=== PATIENT | male | born 1935 | race Caucasian/White ===

== ENCOUNTER 2019-02-22 14:10 | Inpatient (IN) | payer OTHER, MEDICAID ==
[~2019-02-22] VITALS: Ht 162.6 cm; Wt 81.0 kg
[~2019-02-22 14:10] MED LIST: FLA500 PO; LAC PO; LEVAQUIN750 MG PO
[2019-02-22 15:11] LABS: RED CELL DISTRIBUTION WIDTH 13.9 % (11.5-14.5)
[2019-02-22 15:16] LABS: CALCIUM 9.5 mg/dL (8.5-10.1); CARBON DIOXIDE 27.5 mmol/L (21-32); CHLORIDE SERUM 96 mmol/L (98-107); CREATININE SERUM 1.5 mg/dL (0.7-1.3); GLUCOSE SERUM 230 mg/dL (74-106); POTASSIUM SERUM 4.5 mmol/L (3.5-5.1); SODIUM SERUM 134 mmol/L (136-145)
[2019-02-22 15:17] LABS: PLATELET COUNT 598 x10^3mcL (130-400)
[2019-02-22 15:20] LABS: ALBUMIN 3.6 g/dL (3.4-5.0); ALKALINE PHOSPHATASE 185 U/L (46-116); ALT/SGPT 87 U/L (16-63); AST/SGOT 30 U/L (15-37); BILIRUBIN TOTAL 0.7 mg/dL (0.20-1.00); LIPASE 103 IU/L (73-393)
[2019-02-22 15:21] LABS: TOTAL PROTEIN, SERUM 8.5 g/dL (6.4-8.2)
[2019-02-22 16:09] LABS: BAND NEUTROPHIL 3 % (0-10); BASOPHIL 0 % (0-2); MONOCYTE 3 % (0-7); SEGMENTED NEUTROPHILS 84 % (37-75); rbc morphology (normal/abnorm) ABNORMAL (NORMAL)
[2019-02-22 16:10] LABS: PLATELET MORPHOLOGY PLATELETS INCREASED
[2019-02-22] MEDS ORDERED: METFORMIN HYDR500 M1 (16:44)
[2019-02-22] MEDS ORDERED: OMEPRAZOLE40 M1 PO (16:44)
[2019-02-22] MEDS ORDERED: LOSARTAN POTAS100 M1 PO (16:45)
[2019-02-22] MEDS ORDERED: LOVASTATIN40 MG PO (16:45)
[2019-02-22 20:58] VITALS: BP 118/72
[2019-02-23 05:49] VITALS: BP 107/46
[2019-02-23 07:36] LABS: ALKALINE PHOSPHATASE 137 U/L (46-116); ALT/SGPT 59 U/L (16-63); AMYLASE 38 U/L (25-115); AST/SGOT 22 U/L (15-37); BILIRUBIN TOTAL 0.6 mg/dL (0.20-1.00); CALCIUM 8.5 mg/dL (8.5-10.1); CARBON DIOXIDE 26.3 mmol/L (21-32); CHLORIDE SERUM 100 mmol/L (98-107); CREATININE SERUM 1.5 mg/dL (0.7-1.3); GLUCOSE SERUM 183 mg/dL (74-106); LIPASE 43 IU/L (73-393); POTASSIUM SERUM 4.7 mmol/L (3.5-5.1); SODIUM SERUM 136 mmol/L (136-145); TOTAL PROTEIN, SERUM 7.4 g/dL (6.4-8.2)
[2019-02-23 07:37] LABS: ALBUMIN 2.9 g/dL (3.4-5.0)
[2019-02-23 08:31] VITALS: BP 135/64
[2019-02-23 11:45] VITALS: BP 100/50
[2019-02-23 12:48] LABS: BAND NEUTROPHIL 18 % (0-10); MONOCYTE 5 % (0-7); PLATELET MORPHOLOGY PLATELETS INCREASED; SEGMENTED NEUTROPHILS 74 % (37-75); rbc morphology (normal/abnorm) NORMAL (NORMAL)
[2019-02-23 12:50] LABS: PLATELET COUNT 516 x10^3mcL (130-400)
[2019-02-23 16:00] VITALS: BP 130/65
[2019-02-23 17:18] VITALS: BP 115/54
[2019-02-23 21:17] VITALS: BP 128/55
[2019-02-24 05:41] VITALS: BP 120/56
[2019-02-24 08:03] VITALS: BP 114/63
[2019-02-24 12:17] LABS: ALKALINE PHOSPHATASE 129 U/L (46-116); ALT/SGPT 53 U/L (16-63); AST/SGOT 29 U/L (15-37); BILIRUBIN TOTAL 0.4 mg/dL (0.20-1.00); CALCIUM 7.9 mg/dL (8.5-10.1); CARBON DIOXIDE 24.1 mmol/L (21-32); CHLORIDE SERUM 100 mmol/L (98-107); CREATININE SERUM 1.5 mg/dL (0.7-1.3); GLUCOSE SERUM 190 mg/dL (74-106); LIPASE 30 IU/L (73-393); POTASSIUM SERUM 4.2 mmol/L (3.5-5.1); SODIUM SERUM 136 mmol/L (136-145)
[2019-02-24 12:18] LABS: RED CELL DISTRIBUTION WIDTH 13.9 % (11.5-14.5)
[2019-02-24 12:20] LABS: ALBUMIN 2.4 g/dL (3.4-5.0)
[2019-02-24 12:24] LABS: PLATELET COUNT 444 x10^3mcL (130-400)
[2019-02-24 12:55] LABS: BAND NEUTROPHIL 20 % (0-10); SEGMENTED NEUTROPHILS 72 % (37-75)
[2019-02-24 12:56] LABS: MONOCYTE 3 % (0-7); PLATELET MORPHOLOGY PLATELETS INCREASED; rbc morphology (normal/abnorm) NORMAL (NORMAL)
[2019-02-24 16:00] VITALS: BP 111/59
[2019-02-24 16:02] VITALS: BP 122/66
[2019-02-24 20:14] VITALS: BP 135/69
[2019-02-25 05:48] VITALS: BP 156/68
[2019-02-25 06:36] LABS: RED CELL DISTRIBUTION WIDTH 13.9 % (11.5-14.5)
[2019-02-25 06:52] LABS: ALKALINE PHOSPHATASE 136 U/L (46-116); ALT/SGPT 69 U/L (16-63); AST/SGOT 46 U/L (15-37); BILIRUBIN TOTAL 0.48 mg/dL (0.20-1.00); CALCIUM 8.4 mg/dL (8.5-10.1); CARBON DIOXIDE 25.2 mmol/L (21-32); CHLORIDE SERUM 98 mmol/L (98-107); CREATININE SERUM 1.3 mg/dL (0.7-1.3); GLUCOSE SERUM 212 mg/dL (74-106); POTASSIUM SERUM 4.3 mmol/L (3.5-5.1); SODIUM SERUM 133 mmol/L (136-145); TOTAL PROTEIN, SERUM 7.2 g/dL (6.4-8.2)
[2019-02-25 06:53] LABS: ALBUMIN 2.3 g/dL (3.4-5.0)
[2019-02-25 06:55] LABS: PLATELET COUNT 456 x10^3mcL (130-400)
[2019-02-25 08:29] VITALS: BP 157/78
[2019-02-25 10:28] LABS: MONOCYTE 6 % (0-7); SEGMENTED NEUTROPHILS 87 % (37-75)
[2019-02-25 15:27] VITALS: BP 101/56
[2019-02-25 19:45] VITALS: BP 123/57
[2019-02-25 23:09] VITALS: BP 133/65
[2019-02-26 03:32] VITALS: BP 135/66
[2019-02-26 05:23] LABS: PLATELET COUNT 366 x10^3mcL (130-400); RED CELL DISTRIBUTION WIDTH 14.4 % (11.5-14.5)
[2019-02-26 05:40] LABS: ALKALINE PHOSPHATASE 115 U/L (46-116); ALT/SGPT 55 U/L (16-63); AST/SGOT 35 U/L (15-37); BILIRUBIN TOTAL 0.32 mg/dL (0.20-1.00); CALCIUM 7.7 mg/dL (8.5-10.1); CARBON DIOXIDE 27.2 mmol/L (21-32); CHLORIDE SERUM 100 mmol/L (98-107); CREATININE SERUM 1.4 mg/dL (0.7-1.3); GLUCOSE SERUM 204 mg/dL (74-106); POTASSIUM SERUM 3.8 mmol/L (3.5-5.1); SODIUM SERUM 135 mmol/L (136-145); TOTAL PROTEIN, SERUM 6.4 g/dL (6.4-8.2)
[2019-02-26 06:06] LABS: BAND NEUTROPHIL 6 % (0-10); BASOPHIL 0 % (0-2); MONOCYTE 3 % (0-7); SEGMENTED NEUTROPHILS 84 % (37-75)
[2019-02-26 06:07] LABS: PLATELET MORPHOLOGY PLATELETS INCREASED; rbc morphology (normal/abnorm) ABNORMAL (NORMAL)
[2019-02-26 06:08] LABS: PATH REVIEW for HEMA NO
[2019-02-26 08:00] VITALS: BP 124/60
[2019-02-26 09:08] VITALS: Ht 162.6 cm; Wt 81.0 kg
[2019-02-26 13:00] VITALS: BP 134/58
[2019-02-26 16:00] VITALS: BP 143/78
[2019-02-26 19:20] VITALS: BP 133/66
[2019-02-26 23:09] VITALS: BP 115/51
[2019-02-27 03:15] VITALS: BP 135/61
[2019-02-27 05:53] LABS: PLATELET COUNT 336 x10^3mcL (130-400); RED CELL DISTRIBUTION WIDTH 14.4 % (11.5-14.5)
[2019-02-27 06:03] LABS: BASOPHIL % 0 % (0-2)
[2019-02-27 06:20] LABS: ALKALINE PHOSPHATASE 100 U/L (46-116); ALT/SGPT 54 U/L (16-63); AST/SGOT 42 U/L (15-37); BILIRUBIN TOTAL 0.21 mg/dL (0.20-1.00); CALCIUM 7.3 mg/dL (8.5-10.1); CARBON DIOXIDE 25.3 mmol/L (21-32); CHLORIDE SERUM 101 mmol/L (98-107); CREATININE SERUM 1.4 mg/dL (0.7-1.3); GLUCOSE SERUM 266 mg/dL (74-106); MAGNESIUM 1.4 mg/dL (1.8-2.4); POTASSIUM SERUM 4.5 mmol/L (3.5-5.1); SODIUM SERUM 135 mmol/L (136-145)
[2019-02-27 06:22] LABS: ALBUMIN 1.7 g/dL (3.4-5.0); TOTAL PROTEIN, SERUM 5.9 g/dL (6.4-8.2)
[2019-02-27 07:00] VITALS: BP 130/67
[2019-02-27 11:37] VITALS: BP 130/61
[2019-02-27 15:21] VITALS: BP 140/59
[2019-02-27 19:00] VITALS: BP 143/64
[2019-02-27 21:00] VITALS: BP 158/60
[2019-02-28 06:00] VITALS: BP 135/58
[2019-02-28 07:00] LABS: PLATELET COUNT 357 x10^3mcL (130-400); RED CELL DISTRIBUTION WIDTH 14.1 % (11.5-14.5)
[2019-02-28 07:04] LABS: BASOPHIL % 0 % (0-2)
[2019-02-28 07:15] LABS: CARBON DIOXIDE 26.9 mmol/L (21-32); CHLORIDE SERUM 102 mmol/L (98-107); GLUCOSE SERUM 150 mg/dL (74-106); MAGNESIUM 1.7 mg/dL (1.8-2.4); POTASSIUM SERUM 3.5 mmol/L (3.5-5.1); SODIUM SERUM 136 mmol/L (136-145)
[2019-02-28 08:18] VITALS: BP 135/43
[2019-02-28 11:44] VITALS: BP 150/62
[2019-02-28 19:46] VITALS: BP 140/60
[2019-03-01 05:37] VITALS: BP 145/59
[2019-03-01 06:56] LABS: CALCIUM 7.1 mg/dL (8.5-10.1); CARBON DIOXIDE 26.5 mmol/L (21-32); CHLORIDE SERUM 101 mmol/L (98-107); GLUCOSE SERUM 152 mg/dL (74-106); POTASSIUM SERUM 3.7 mmol/L (3.5-5.1); SODIUM SERUM 137 mmol/L (136-145)
[2019-03-01 07:28] LABS: PLATELET COUNT 437 x10^3mcL (130-400)
[2019-03-01 08:10] VITALS: BP 156/63
[2019-03-01 11:09] LABS: MONOCYTE 8 % (0-7); SEGMENTED NEUTROPHILS 78 % (37-75)
[2019-03-01 11:11] LABS: rbc morphology (normal/abnorm) NORMAL (NORMAL)
[2019-03-01 11:38] VITALS: BP 113/68
[2019-03-01 15:30] VITALS: BP 147/60
[2019-03-01 20:18] VITALS: BP 166/61
[2019-03-02 05:10] VITALS: BP 102/60
[2019-03-02 07:22] VITALS: BP 154/62
[2019-03-02 07:40] LABS: ALKALINE PHOSPHATASE 97 U/L (46-116); ALT/SGPT 30 U/L (16-63); AST/SGOT 17 U/L (15-37); BILIRUBIN TOTAL 0.37 mg/dL (0.20-1.00); CALCIUM 7.3 mg/dL (8.5-10.1); CARBON DIOXIDE 28.5 mmol/L (21-32); CHLORIDE SERUM 98 mmol/L (98-107); CREATININE SERUM 1.2 mg/dL (0.7-1.3); GLUCOSE SERUM 186 mg/dL (74-106); POTASSIUM SERUM 3.7 mmol/L (3.5-5.1); SODIUM SERUM 134 mmol/L (136-145)
[2019-03-02 07:41] LABS: ALBUMIN 1.8 g/dL (3.4-5.0); TOTAL PROTEIN, SERUM 5.8 g/dL (6.4-8.2)
[2019-03-02 08:54] LABS: RED CELL DISTRIBUTION WIDTH 14.1 % (11.5-14.5)
[2019-03-02 09:00] LABS: PLATELET COUNT 456 x10^3mcL (130-400)
[2019-03-02 11:54] VITALS: BP 127/54
[2019-03-02 13:46] LABS: BAND NEUTROPHIL 2 % (0-10); BASOPHIL 0 % (0-2); MONOCYTE 13 % (0-7); SEGMENTED NEUTROPHILS 76 % (37-75)
[2019-03-02 13:48] LABS: rbc morphology (normal/abnorm) ABNORMAL (NORMAL)
[2019-03-02 13:49] LABS: PLATELET MORPHOLOGY PLATELETS INCREASED
[2019-03-02 14:42] LABS: UA SPECIFIC GRAVITY 1.015 (1.005-1.035); microscopic required? YES; urine erythrocyte NEGATIVE (NEGATIVE)
[2019-03-02 16:32] VITALS: BP 128/69
[2019-03-02 21:06] VITALS: BP 131/61
[2019-03-03 05:30] VITALS: BP 144/58
[2019-03-03 06:55] LABS: BASOPHIL % 0.1 % (0-2)
[2019-03-03 06:56] LABS: PLATELET COUNT 464 x10^3mcL (130-400)
[2019-03-03 07:10] LABS: ALBUMIN 1.9 g/dL (3.4-5.0); ALKALINE PHOSPHATASE 87 U/L (46-116); ALT/SGPT 24 U/L (16-63); AST/SGOT 13 U/L (15-37); BILIRUBIN TOTAL 0.45 mg/dL (0.20-1.00); CALCIUM 7.6 mg/dL (8.5-10.1); CARBON DIOXIDE 29.1 mmol/L (21-32); CHLORIDE SERUM 97 mmol/L (98-107); CREATININE SERUM 1.1 mg/dL (0.7-1.3); GLUCOSE SERUM 140 mg/dL (74-106); POTASSIUM SERUM 3.4 mmol/L (3.5-5.1); SODIUM SERUM 134 mmol/L (136-145)
[2019-03-03 09:21] VITALS: BP 134/68
[2019-03-03 12:14] VITALS: BP 128/67
[2019-03-03 16:44] VITALS: BP 138/60
[2019-03-03 20:15] VITALS: BP 123/53
[2019-03-04 05:21] VITALS: BP 133/54
[2019-03-04 07:05] LABS: BASOPHIL % 0.2 % (0-2); RED CELL DISTRIBUTION WIDTH 13.8 % (11.5-14.5)
[2019-03-04 07:10] LABS: PLATELET COUNT 517 x10^3mcL (130-400)
[2019-03-04 07:49] LABS: CARBON DIOXIDE 27.2 mmol/L (21-32); CHLORIDE SERUM 101 mmol/L (98-107); CREATININE SERUM 1.1 mg/dL (0.7-1.3); GLUCOSE SERUM 104 mg/dL (74-106); POTASSIUM SERUM 3.7 mmol/L (3.5-5.1); SODIUM SERUM 139 mmol/L (136-145)
[2019-03-04 12:28] VITALS: BP 125/54
[2019-03-04 14:16] VITALS: BP 125/54
== END 2019-03-04 15:05 | disposition home or self-care (01) | DRG 854 ==
LOC: ED 14:10 → MU 18:30 → IC 18:30 → MU 19:35 → IC 02-25 13:05 → DU 02-27 19:03
PROVIDERS: Internal Medicine; Internal Medicine Pulmonary Disease; Student in an Organized Health Care Education/Training Program; Surgery; ADMIT Internal Medicine Pulmonary Disease
PROC: 0FC98ZZ Extirpation of Matter from Common Bile Duct, Via Natural or Artificial Opening Endoscopic (ICD-10-PCS; 2019-02-23 14:00)
PROC: 0WQF4ZZ Repair Abdominal Wall, Percutaneous Endoscopic Approach (ICD-10-PCS; 2019-02-26)
PROC: 0FT44ZZ Resection of Gallbladder, Percutaneous Endoscopic Approach (ICD-10-PCS; principal; 2019-02-26 10:00)
DX: A41.9 Sepsis, unspecified organism (principal); K80.42 Calculus of bile duct with acute cholecystitis without obstruction; K80.00 Calculus of gallbladder with acute cholecystitis without obstruction; N17.9 Acute kidney failure, unspecified; K82.A1 Gangrene of gallbladder in cholecystitis; K21.9 Gastro-esophageal reflux disease without esophagitis; K66.0 Peritoneal adhesions (postprocedural) (postinfection); K42.9 Umbilical hernia without obstruction or gangrene; R09.02 Hypoxemia; I10 Essential (primary) hypertension; E11.9 Type 2 diabetes mellitus without complications; E78.5 Hyperlipidemia, unspecified; Z68.30 Body mass index [BMI] 30.0-30.9, adult; Z79.84 Long term (current) use of oral hypoglycemic drugs
CPT/HCPCS: 36600; 43262; 82962; 97112-GP; 97116-GP; 97530-GP; C1769; G0378; J0330; J0696; J0744; J1170; J1610; J1644; J1650; J1815; J2270; J2405; J2543; J2704; J2710; J3010; J3475; J3490; J7030; J7050; J7060; J7120; Q0092; Q9967